=== PATIENT | female | born 1990 ===

== ENCOUNTER 2016-08-17 19:33 | Emergency (ER) | payer OTHER ==
[2016-08-17 19:41] VITALS: BMI 25.8
[2016-08-17 19:44] VITALS: TEMP 98.5; O2SAT 100
--- NOTE | 2016-08-17 19:54 | ED PDOC ---
Arrival/HPI - General Historian: Patient <Vicente Hoover - Last Filed: 08/17/16 21:11> <Ezra Murphy - Last Filed: 08/17/16 22:03> - General Chief Complaint: Trauma Time Seen by Provider: 08/17/16 19:49 - History of Present Illness Narrative History of Present Illness (Text): 08/17/16 19:50 26 y/o female, no significant pmh, nkda, last tetanus under 3 years ago, c/o foot injury x 1 day. Pt. stated that her wooden table accidentally hit on the top of her shoe, sustained the abrasion, no numbness or tingling, no night sweat , no dizziness, no chest pain or shortness of breath, no other medical or psychological complaints. (Vicente oHover) Past Medical History - Provider Review Nursing Documentation Reviewed: Yes - Infectious Disease Hx of Infectious Diseases: None - Psychiatric Hx Substance Use: No - Anesthesia Hx Anesthesia: No <Vicente Hoover - Last Filed: 08/17/16 21:11> Family/Social History - Physician Review Nursing Documentation Reviewed: Yes Family/Social History: Unknown Family HX Smoking Status: Never Smoked Hx Alcohol Use: No Hx Substance Use: No <Vicente Hoover - Last Filed: 08/17/16 21:11> Allergies/Home Meds <Vicente Hoover - Last Filed: 08/17/16 21:11> <Ezra Murphy - Last Filed: 08/17/16 22:03> Allergies/Adverse Reactions: Allergies No Known Allergies Allergy (Verified 08/17/16 19:41) Review of Systems - Review of Systems Constitutional: absent: Fatigue, Fevers Eyes: absent: Vision Changes ENT: absent: Hearing Changes Respiratory: absent: SOB, Cough Cardiovascular: absent: Chest Pain Gastrointestinal: absent: Abdominal Pain, Diarrhea, Nausea, Vomiting Musculoskeletal: Arthralgias, Myalgias. absent: Back Pain, Neck Pain, Joint Swelling Skin: Other (+abrasion). absent: Rash, Pruritis, Skin Lesions, Laceration, Abscess, Ulcer, Cellulitis <Vicente Hoover - Last Filed: 08/17/16 21:11> Physical Exam Vital Signs Reviewed: Yes Temperature: Afebrile Blood Pressure: Normal Pulse: Regular Respiratory Rate: Normal Appearance: Positive for: Well-Appearing, Non-Toxic, Comfortable Pain Distress: Moderate Mental Status: Positive for: Alert and Oriented X 3 - Systems Exam Head: Present: Atraumatic, Normocephalic Pupils: Present: PERRL Extroacular Muscles: Present: EOMI Conjunctiva: Present: Normal Mouth: Present: Moist Mucous Membranes Neck: Present: Normal Range of Motion Respiratory/Chest: Present: Clear to Auscultation, Good Air Exchange. No: Respiratory Distress, Accessory Muscle Use Cardiovascular: Present: Regular Rate and Rhythm, Normal S1, S2. No: Murmurs Abdomen: Present: Normal Bowel Sounds. No: Tenderness, Distention, Peritoneal Signs Back: Present: Normal Inspection Upper Extremity: Present: Normal Inspection. No: Cyanosis, Edema Lower Extremity: Present: Normal Inspection, Other (Rt. foot: visible superficial abrasion less than 0.25cm diameter noted on the dorsum aspect of the foot, no laceration, no puncture wound, FROM without limitation, sensation intact, motor 5/5, +DPPT pulses, capillary refill< 2 seconds, neurovascular intact. ). No: Edema Neurological: Present: GCS=15, CN II-XII Intact, Speech Normal Skin: Present: Warm, Dry, Normal Color. No: Rashes Psychiatric: Present: Alert, Oriented x 3, Normal Insight, Normal Concentration <Vicente Hoover - Last Filed: 08/17/16 21:11> Medical Decision Making <Vicente Hoover - Last Filed: 08/17/16 21:11> <Ezra Murphy - Last Filed: 08/17/16 22:03> ED Course and Treatment: 08/17/16 19:57 -motrin -xray -wound irrigate with normal saline, clean with betadine, bacitracin and gauze dressing. 08/17/16 21:11 -xray show there is fracture on the 2nd proximal phalanx region, minerva tapping and posterior splint applied, keflex ordered. --Discharge home with keflex, bacitracin ointment, motrin, ice compression, minerva tapping, posterior splint, crutches, non-weight bearing, follow up with your own pmd and title investigator within 2 days return to the ER for any new or worsening signs or symptoms. (Vicente Hoover) - RAD Interpretation Radiology Orders: 08/17/16 19:49 FOOT RIGHT 3 VIEWS ROUTINE [RAD] Stat - Medication Orders Current Medication Orders: Discontinued Medications Cephalexin Monohydrate (Keflex) 500 mg PO STAT STA PRN Reason: Protocol Stop: 08/17/16 21:11 Ibuprofen (Motrin Tab) 600 mg PO STAT STA Stop: 08/17/16 19:55 Last Admin: 08/17/16 20:18 Dose: 600 mg - PA / [employer] / Resident Statement / has reviewed & agrees with the documentation as recorded. <Vicente Hoover - Last Filed: 08/17/16 21:11> - PA / [employer] / Resident Statement JUAN ANTONIO has reviewed & agrees with the documentation as recorded. <Ezra Murphy - Last Filed: 08/17/16 22:03> Disposition/Present on Arrival - Present on Arrival Any Indicators Present on Arrival: No History of DVT/PE: No History of Uncontrolled Diabetes: No Urinary Catheter: No History of Decub. Ulcer: No History Surgical Site Infection Following: None - Disposition Have Diagnosis and Disposition been Completed?: Yes Disposition Time: 19:58 Patient Plan: Discharge <Vicente Hoover - Last Filed: 08/17/16 21:11> <Ezra Murphy - Last Filed: 08/17/16 22:03> - Disposition Diagnosis: Abrasion, Foot fracture Disposition: HOME/ ROUTINE Condition: IMPROVED Additional Instructions: Discharge home with keflex, bacitracin ointment, motrin, ice compression, minerva tapping, posterior splint, crutches, non-weight bearing, follow up with your own pmd and title investigator within 2 days return to the ER for any new or worsening signs or symptoms. Prescriptions: Bacitracin Ointment [Bacitracin] 1 appful TOP BID #15 g Cephalexin [cephalexin] 500 mg PO QID #40 cap Ibuprofen [Motrin Tab] 600 mg PO QID PRN #30 tab PRN Reason: Other Referrals: Italia Esquivel MD [Primary Care Provider] - Follow up with primary Jailyn Ackerman DPM [Staff Provider] - Follow up with primary Forms: WORK NOTE
[2016-08-17 23:34] VITALS: BP 123/76; PULSE 80; RESP 18
--- NOTE | 2016-08-18 07:25 | RAD ---
PROCEDURE: Right Foot Radiographs. HISTORY: rt. foot injury COMPARISON: None. FINDINGS: BONES: A 2nd proximal phalangeal complete transverse fracture -without gross displacement noted. The medial sesamoid bone appears bipartite JOINTS: Normal. SOFT TISSUES: Normal. OTHER FINDINGS: None. IMPRESSION: Nondisplaced 2nd proximal phalangeal fracture. Medial sesamoid-bipartite
== END 2016-08-17 22:30 | disposition home or self-care (01) ==
LOC: ED 19:33 → MERGE 19:33 → ED 22:30
DX: S92.811A Other fracture of right foot, initial encounter for closed fracture (principal); W22.03XA Walked into furniture, initial encounter